=== PATIENT | male | born 1960 | race Caucasian/White ===

== ENCOUNTER 2019-11-02 07:28 | Emergency (ER) | payer BC ==
[~2019-11-02] VITALS: Ht 185.4 cm; Wt 99.8 kg
[2019-11-02] MEDS ORDERED: [UNRECOGNIZED DRUG - OTHER] (07:35)
[2019-11-02] MEDS ORDERED: LOSARTAN-HCTZ1 EAC3 PO (07:35)
[2019-11-02 07:58] LABS: ABSOLUTE EOSINOPHILS 0.1 thou/uL (0.0-0.7); ABSOLUTE LYMPHOCYTES 1.5 thou/uL (0.8-5.3); ABSOLUTE NEUTROPHILS 2.4 thou/uL (1.6-8.1); MCHC 36.1 g/dL (28.0-37.0); NUCLEATED RBCS 1 /100WBC; WBC 4.8 thou/uL (4.0-11.0)
[2019-11-02 08:01] LABS: ABSOLUTE MONOCYTES 0.7 thou/uL (0.0-1.2); BASOPHILS 0.8 %; EOSINOPHILS 2.6 %; HEMATOCRIT 46.9 % (42.0-52.0); HEMOGLOBIN 16.9 gm/dL (14.0-18.0); LYMPHOCYTES 31.7 %; MCH 30.1 pg (26.0-34.0); MCV 83.4 fL (80.0-100.0); MONOCYTES 14.1 %; MPV 8.5 fl. (7.2-11.1); PLATELET COUNT* 210 thou/uL (150-400); POLYS 50.8 %; RBC 5.62 mil/uL (4.50-6.00); RDW-CV 13.6 % (10.5-14.5)
[2019-11-02 08:02] LABS: CALCIUM 9.2 mg/dL (8.5-10.1); CREATININE 1.6 mg/dL (0.6-1.3); POTASSIUM 3.1 mmol/L (3.5-5.1)
[2019-11-02 08:06] LABS: ALBUMIN 4.7 g/dL (3.4-5.0); TOTAL BILIRUBIN 1.1 mg/dL (<0.1-1.0); TOTAL PROTEIN 8.6 g/dL (6.4-8.2)
[2019-11-02] MEDS ORDERED: CIPROFLOXACIN500 M1 PO (08:37)
[2019-11-02] MEDS ORDERED: NORCO 5-325 TA1 EAC1 PO (08:37)
[2019-11-02] MEDS ORDERED: FLOMAX0.4 MG PO (08:37)
[2019-11-02 08:45] LABS: INFLUENZA A ANTIGEN Negative (Negative); INFLUENZA B ANTIGEN Negative (Negative)
[2019-11-02 08:55] VITALS: BP 102/85
== END 2019-11-02 08:56 | disposition home or self-care (01) ==
LOC: M.ERS 07:28
PROVIDERS: Family Medicine
DX: N20.0 Calculus of kidney (principal); I10 Essential (primary) hypertension; Z88.0 Allergy status to penicillin